=== PATIENT | female | born 1995 | race Caucasian/White ===

== ENCOUNTER 2021-04-25 07:15 | Inpatient (IN) ==
[2021-04-25] MEDS ORDERED: LR 1000 ML IV 1,000 ML IV ONE ×3 (07:51→08:42)
[2021-04-25] MEDS ORDERED: NS IV ONE (08:12)
[2021-04-25] MEDS ORDERED: GENTAMICIN IV ONE (08:12)
[2021-04-25] MEDS ORDERED: BENADRYL INJ 50 MG VIAL IVP PRN ×2 (08:54→11:02)
[2021-04-25] MEDS ORDERED: ZOFRAN INJ 4 MG VIAL IVP PRN ×3 (08:54→13:46)
[2021-04-25] MEDS ORDERED: TORADOL 30 MG VIAL IVP PRN (08:54)
[2021-04-25] MEDS ORDERED: D5 1/2 NS 1000 ML 1,000 ML IV SCH ×2 (09:00)
[2021-04-25] MEDS ORDERED: CLEOCIN VIAL 600 MG 900 MG in D5W 50 ML IV 50 ML IV SCH (09:00)
[2021-04-25] MEDS ORDERED: DILAUDID INJ ONE (09:18)
[2021-04-25] MEDS ORDERED: VERSED ONE (09:32)
[2021-04-25] MEDS ORDERED: EPHEDRINE SULFATE INJ ONE (09:32)
[2021-04-25] MEDS ORDERED: XYLOCAINE 1 % (PLAIN) ONE (09:32)
[2021-04-25] MEDS ORDERED: TORADOL 30 MG VIAL ONE (09:32)
[2021-04-25] MEDS ORDERED: HEMABATE IM ONE (10:17)
[2021-04-25] MEDS ORDERED: D5 1/2 NS 1L W PITOCIN 20 UNITS/L 20 UNITS/1,000 ML BAG IV ONE (10:35)
[2021-04-25] MEDS ORDERED: BICITRA 30 ML PO ONE (10:59)
[2021-04-25] MEDS ORDERED: REGLAN INJ 10 MG VIAL IVP PRN (11:02)
[2021-04-25] MEDS ORDERED: BARHEMSYS INJ IVP PRN (11:02)
[2021-04-25] MEDS ORDERED: DILAUDID INJ IVP PRN (11:02)
[2021-04-25] MEDS ORDERED: PHENERGAN INJ 25 MG IM PRN ×2 (11:02→13:46)
[2021-04-25] MEDS ORDERED: MYLICON TAB 80 MG CHEW PO PRN (13:46)
[2021-04-25] MEDS ORDERED: PERCOCET TAB 5/325 MG PO PRN (13:46)
[2021-04-25] MEDS ORDERED: MOTRIN TAB 800 MG PO PRN (13:46)
[2021-04-25] MEDS: TORADOL 30 MG VIAL IVP SCH ×2 (14:45→21:50)
[2021-04-25] MEDS ORDERED: COLACE CAP 100 MG PO SCH (21:00)
[2021-04-26] MEDS: TORADOL 30 MG VIAL IVP SCH ×2 (02:02→06:45)
[2021-04-26 06:25] LABS: HEMATOCRIT 27.6 % (36.0-47.0); HEMOGLOBIN 9.3 g/dL (12.0-16.0)
--- NOTE | 2021-04-26 07:14 | NOTE.PROBC ---
Progress Note OB-C/S Subjective Data Subjective: No complaints, decreased lochia. Tolerating regular diet. No N/V. Ambulating well. Gomez draining well. Pain under good control with toradol. Objective Data Result Diagrams: 04/26/21 05:46 Objective Data: CV= RRR no MRG Lungs=CTA Bilaterally Abd=(+) BS, soft, ND, appropriately tender near incision. Bandage removed. Incision clean/dry/intact, no erythema, no bleeding, no discharge. Dermabond/St itches intact. Fundus firm/NT/ at 2 cm below umbilicus. Ext= No edema, NT, No Cords. Graduated Compression Stockings/Sequential Compression Devices Bilaterally. Plan (1) Gestational hypertension: Plan: bp's 130/70 post op. Pt requesting early d/c. (2) Gestational diabetes: (3) Previous section complicating , with delivery:
[2021-04-26 08:47] VITALS: BP 136/86
[2021-04-26] MEDS ORDERED: PRENATAL PLUS PO SCH (09:00)
== END 2021-04-26 09:50 | disposition home or self-care (01) | DRG 788 ==
LOC: LD 07:15 → MED/SURG 08:09
PROVIDERS: ADMIT Obstetrics & Gynecology; ATTEND Obstetrics & Gynecology
DX: Z3A.37 37 weeks gestation of pregnancy; O13.3 Gestational [pregnancy-induced] hypertension without significant proteinuria, third trimester; O24.410 Gestational diabetes mellitus in pregnancy, diet controlled; Z37.0 Single live birth; O32.1XX0 Maternal care for breech presentation, not applicable or unspecified